=== PATIENT | male | born 1960 | race Caucasian/White ===

== ENCOUNTER 2022-07-03 10:11 | Emergency (ER) | payer MEDICAID ==
[~2022-07-03] VITALS: Ht 165.1 cm; Wt 75.0 kg
[2022-07-03] MEDS ORDERED: SODIUM CHLORIDE 0.9% 1,000 ML IV ONE (10:30)
[2022-07-03] MEDS ORDERED: ONDANSETRON HCL 4MG/2ML INJ IV ONE (11:00)
[2022-07-03 11:04] LABS: BASOPHILS % 0.6 % (0.0-2.0); EOSINOPHILS % 3.5 % (0.0-5.0); HEMATOCRIT. 41.8 % (42.0-52.0); HEMOGLOBIN. 14.3 g/dL (14.0-18.0); LYMPHOCYTES % 18.8 % (20.0-50.0); MEAN CORPUSCULAR HEMOGLOBIN 32.4 pg (28.0-32.0); MEAN PLATELET VOLUME 9.2 fl (7.4-10.4); MONOCYTES % 6.4 % (2.0-8.0); NEUTROPHILS % 70.7 % (40.0-76.0); PLATELET 223 x1000/uL (130-400); RED CELL DISTRIBUTION WIDTH 13.9 % (11.6-14.6)
[2022-07-03 11:12] LABS: CHLORIDE 98 mEq/L (98-107)
[2022-07-03 13:57] VITALS: BP 112/64
== END 2022-07-03 13:58 | disposition home or self-care (01) ==
LOC: ER 10:11
DX: F10.129 Alcohol abuse with intoxication, unspecified (principal); Y90.7 Blood alcohol level of 200-239 mg/100 ml
CPT/HCPCS: 36415; 80048; 80320; 83735; 85025; 96361; 96374; 99283; J2405; J7030; G0480

== ENCOUNTER 2022-12-05 11:44 | Emergency (ER) | payer MEDICAID ==
[~2022-12-05] VITALS: Ht 170.2 cm; Wt 63.5 kg
[2022-12-05 13:23] LABS: BASOPHILS % 0.5 % (0.0-2.0); EOSINOPHILS % 1.5 % (0.0-5.0); HEMATOCRIT. 42.2 % (42.0-52.0); HEMOGLOBIN. 14.3 g/dL (14.0-18.0); LYMPHOCYTES % 13.2 % (20.0-50.0); MEAN CORPUSCULAR VOLUME 91.8 fL (80.0-94.0); MEAN PLATELET VOLUME 8.8 fl (7.4-10.4); MONOCYTES % 9.8 % (2.0-8.0); PLATELET 286 x1000/uL (130-400); RED CELL DISTRIBUTION WIDTH 16.3 % (11.6-14.6)
[2022-12-05 13:25] LABS: CHLORIDE 103 mEq/L (98-107)
[2022-12-05 15:43] LABS: CLARITY URINE CLEAR (CLEAR); COLOR URINE DARK YELLOW (YELLOW); KETONES URINE TRACE (NEGATIVE); LEUKOCYTE ESTERASE URINE TRACE (NEGATIVE); NITRITE URINE NEGATIVE (NEGATIVE); OCCULT BLOOD URINE NEGATIVE (NEGATIVE); PROTEIN URINE 1+ (NEGATIVE); SPECIFIC GRAVITY URINE 1.032 (1.005-1.030)
[2022-12-05] MEDS ORDERED: LEVOFLOXACIN 250MG TABLET PO ONE (16:45)
[2022-12-05] MEDS ORDERED: KETOROLAC 30MG/ML VIAL IM ONE (16:45)
[2022-12-05] MEDS ORDERED: LEVO750T68 MT (16:54)
[2022-12-05] MEDS ORDERED: NAPR-681 MT (16:54)
[2022-12-05] MEDS ORDERED: CEFTRIAXONE SODIUM 500 MG/VIAL IM ONE (17:00)
[2022-12-05] MEDS ORDERED: LIDOCAINE HCL/PF 1% 10 MG/ML 5ML VIAL INFIL ONE (17:15)
[2022-12-05 18:58] VITALS: BP 132/74
== END 2022-12-05 18:20 | disposition home or self-care (01) ==
LOC: ER 11:44
DX: N45.3 Epididymo-orchitis (principal)
CPT/HCPCS: 36415; 74176; 76870; 80053; 81003; 85025; 87491; 87591; 93976; 96372; 99285; J0696; J1885; J3490; Z7610

== ENCOUNTER 2024-08-03 13:42 | Emergency (ER) | payer MEDICARE, MEDICAID ==
[~2024-08-03] VITALS: Ht 165.1 cm; Wt 70.0 kg
[~2024-08-03 13:42] MED LIST: ALBU18HF2 INH; AMI2 PO; ASPI-1406 PO; ATOR-2 PO; CHLO25TA2 PO; DAPA5TAB PO; DIVA-75 PO; DOCU-422 PO; FLUT16SP15 INH; GABA-290 PO; LEVO750T68 MT; LEVO75TA7 PO; NAPR-681 MT; PANT40TA51 PO; SACU1TAB7 PO; TICA90TA PO; TIOT4MIS5 PO
[2024-08-03 14:04] VITALS: O2SAT 96
[2024-08-03] MEDS: LIDOCAINE HCL/PF 1% 10 MG/ML 5ML VIAL INFIL ONE (17:00)
[2024-08-03] MEDS ORDERED: CEPH500T MT (17:05)
[2024-08-03] MEDS ORDERED: SULF1TAB48 MT (17:05)
[2024-08-03] MEDS: BACITRACIN ZINC OINT UDPKT TOP ONE (17:36)
[2024-08-03] MEDS: HYDROCODONE/ACETAMINOPHEN 5/325MG TABLET PO ONE (17:36)
[2024-08-03 17:40] VITALS: BP 125/72; PULSE 72; RESP 16; TEMP 36.8; O2SAT 96
== END 2024-08-03 17:45 | disposition home or self-care (01) ==
LOC: ER 13:42
DX: L02.414 Cutaneous abscess of left upper limb (principal); I10 Essential (primary) hypertension; Z79.899 Other long term (current) drug therapy; Z86.73 Personal history of transient ischemic attack (TIA), and cerebral infarction without residual deficits; Z79.84 Long term (current) use of oral hypoglycemic drugs; Z79.82 Long term (current) use of aspirin; Z79.1 Long term (current) use of non-steroidal anti-inflammatories (NSAID); Z79.02 Long term (current) use of antithrombotics/antiplatelets
CPT/HCPCS: 99284; 10060; 73080; J2003

== ENCOUNTER 2024-08-05 08:44 | Emergency (ER) | payer MEDICARE, MEDICAID ==
[~2024-08-05] VITALS: Ht 172.7 cm; Wt 60.0 kg
[~2024-08-05 08:44] MED LIST changes: +CEPH500T MT; +SULF1TAB48 MT
[2024-08-05 09:05] VITALS: O2SAT 99
[2024-08-05] MEDS ORDERED: IBUP-2028 MT (11:43)
[2024-08-05 12:01] VITALS: BP 113/62; PULSE 79; RESP 18; TEMP 36.9; O2SAT 99
== END 2024-08-05 12:05 | disposition home or self-care (01) ==
LOC: ER 08:44
DX: M71.022 Abscess of bursa, left elbow (principal); I10 Essential (primary) hypertension; I51.9 Heart disease, unspecified; Z48.00 Encounter for change or removal of nonsurgical wound dressing; Z79.899 Other long term (current) drug therapy; Z86.73 Personal history of transient ischemic attack (TIA), and cerebral infarction without residual deficits
CPT/HCPCS: 99282

== ENCOUNTER 2024-11-23 06:31 | Emergency (ER) | payer MEDICARE, MEDICAID ==
[~2024-11-23] VITALS: Ht 165.1 cm; Wt 62.0 kg
[~2024-11-23 06:31] MED LIST changes: +IBUP-2028 MT
[2024-11-23 06:48] VITALS: O2SAT 98
[2024-11-23] MEDS: ACETAMINOPHEN 325MG TABLET PO ONE (08:25)
[2024-11-23 08:58] VITALS: BP 132/83; PULSE 83; RESP 20; TEMP 37.1; O2SAT 98
== END 2024-11-23 09:01 | disposition home or self-care (01) ==
LOC: ER 06:31
DX: M25.562 Pain in left knee (principal); I10 Essential (primary) hypertension; Z86.73 Personal history of transient ischemic attack (TIA), and cerebral infarction without residual deficits; Z79.899 Other long term (current) drug therapy; Z79.84 Long term (current) use of oral hypoglycemic drugs; Z79.82 Long term (current) use of aspirin; Z79.1 Long term (current) use of non-steroidal anti-inflammatories (NSAID); Z79.02 Long term (current) use of antithrombotics/antiplatelets; Z98.890 Other specified postprocedural states; I25.10 Atherosclerotic heart disease of native coronary artery without angina pectoris
CPT/HCPCS: 73562; 99283